=== PATIENT | female | born 1950 | race Caucasian/White ===

== ENCOUNTER 2022-04-05 15:13 | Outpatient (CLI) | payer MEDICARE, BC, SELFPAY ==
[2022-04-05 17:25] LABS: Albumin* 4.1 g/dL (3.3-5.0); Chloride* 106 mmol/L (96-114); Sodium* 137 mmol/L (135-149)
[2022-04-05 17:26] LABS: Potassium* 4.7 mmol/L (3.6-5.1)
[2022-04-05 17:28] LABS: Alanine Aminotransferase* 14 U/L (4-35); Alkaline Phosphatase* 55 U/L (40-150); Aspartate Amino Transferase* 25 U/L (12-35); Bilirubin Total* 0.2 mg/dL (0.1-1.5); Blood Urea Nitrogen* 17 mg/dL (7-30); Carbon Dioxide* 26 mmol/L (20-32); Creatinine* 0.7 mg/dL (0.5-1.5); Estimated Glomerular Filt Rate 94 ml/min; Glucose* 99 mg/dL (60-115); Total Protein* 7.3 g/dL (6.0-8.3)
[2022-04-05 17:29] LABS: Calcium* 9.2 mg/dL (8.4-10.6)
== END 2022-04-05 15:14 | disposition home or self-care (01) ==
LOC: LONREF 15:14
PROVIDERS: PCP Family Medicine; Visit Provider Family Medicine
DX: Z01.818 Encounter for other preprocedural examination (principal); K50.00 Crohn's disease of small intestine without complications; E78.5 Hyperlipidemia, unspecified; D68.2 Hereditary deficiency of other clotting factors; Z79.01 Long term (current) use of anticoagulants; G40.909 Epilepsy, unspecified, not intractable, without status epilepticus
CPT/HCPCS: 80053

== ENCOUNTER 2022-04-19 10:07 | Outpatient (CLI) | payer MEDICARE, BC, SELFPAY ==
--- NOTE | 2022-04-19 11:29 | W.ANESCHARGE ---
Anesthesia Charges Start Date/Time Anesthesia Start Date: 04/19/22 Anesthesia Start Time: 10:54 Stop Date/Time Anesthesia Stop Date: 04/19/22 Anesthesia Stop Time: 11:24 Summary Emergency: No
--- NOTE | 2022-04-19 11:53 | W.ANESCHARGE ---
Anesthesia Charges Start Date/Time Anesthesia Start Date: 04/19/22 Anesthesia Start Time: 10:54 Stop Date/Time Anesthesia Stop Date: 04/19/22 Anesthesia Stop Time: 11:24 Summary Emergency: No
== END 2022-04-19 10:08 | disposition home or self-care (01) ==
LOC: OP CLINIC 10:09
PROVIDERS: PCP Family Medicine; Visit Provider Internal Medicine Gastroenterology
DX: Z12.11 Encounter for screening for malignant neoplasm of colon (principal); K50.10 Crohn's disease of large intestine without complications; K63.5 Polyp of colon; K62.89 Other specified diseases of anus and rectum; K63.89 Other specified diseases of intestine; Z86.010 Personal history of colon polyps
CPT/HCPCS: 45380; 811; 812; 88305; J2704

== ENCOUNTER 2023-05-13 14:06 | Outpatient (CLI) | payer MEDICARE, BC, SELFPAY | END 2023-05-13 14:07 | disposition home or self-care (01) | LOC: NFLDREF 05-15 07:47 | PROVIDERS: PCP Family Medicine; Referring Provider Family Medicine; Visit Provider Family Medicine | DX: D68.2 Hereditary deficiency of other clotting factors (principal); Z79.01 Long term (current) use of anticoagulants | CPT/HCPCS: 85610 ==

== ENCOUNTER 2023-06-24 11:10 | Outpatient (CLI) | payer MEDICARE, BC, SELFPAY | END 2023-06-24 11:11 | disposition home or self-care (01) | LOC: NFLDREF 06-28 11:57 | PROVIDERS: PCP Family Medicine; Referring Provider Family Medicine; Visit Provider Family Medicine | DX: D68.2 Hereditary deficiency of other clotting factors (principal); Z79.01 Long term (current) use of anticoagulants | CPT/HCPCS: 85610 ==

== ENCOUNTER 2023-07-18 11:36 | Outpatient (CLI) | payer MEDICARE, BC, SELFPAY | END 2023-07-18 11:37 | disposition home or self-care (01) | LOC: NFLDREF 07-21 05:33 | PROVIDERS: PCP Family Medicine; Referring Provider Family Medicine; Visit Provider Family Medicine | DX: D68.2 Hereditary deficiency of other clotting factors (principal) | CPT/HCPCS: 85610 ==

== ENCOUNTER 2023-11-15 11:35 | Outpatient (CLI) | payer MEDICARE, BC, SELFPAY | END 2023-11-15 11:36 | disposition home or self-care (01) | LOC: NFLDREF 11-29 10:13 | PROVIDERS: PCP Family Medicine; Referring Provider Family Medicine; Visit Provider Family Medicine | DX: Z79.01 Long term (current) use of anticoagulants (principal) | CPT/HCPCS: 85610 ==

== ENCOUNTER 2024-02-01 16:32 | Outpatient (CLI) | payer MEDICARE, BC, SELFPAY | END 2024-02-01 16:33 | disposition home or self-care (01) | LOC: NFLDREF 02-21 10:01 | PROVIDERS: PCP Family Medicine; Referring Provider Family Medicine; Visit Provider Family Medicine | DX: R35.0 Frequency of micturition (principal) | CPT/HCPCS: 87086 ==

== ENCOUNTER 2024-08-10 13:09 | Outpatient (CLI) | payer MEDICARE, BC, SELFPAY ==
--- NOTE | 2024-08-10 13:20 | CRLHL7_ITS ---
For Patients: As a result of the Century Cures Act, medical imaging exams and procedure reports are released immediately into your electronic medical record. You may view this report before your referring provider. If you have questions, please contact your health care provider. BILATERAL SCREENING MAMMOGRAM WITH COMPUTER-AIDED DETECTION AND TOMOSYNTHESIS TECHNIQUE: CC and MLO views were obtained. These mammographic images have been obtained using full-field digital technique. These mammographic images were interpreted with the benefit of computer-aided detection. Breast Tomosynthesis was used in this interpretation. COMPARISON FILM: 05/25/2021, 04/08/2020, 06/30/2017. FINDINGS: There are scattered areas of fibroglandular density. IMPRESSION: There is no radiographic evidence for malignancy. ASSESSMENT: BI-RADS Category 1: Negative RECOMMENDATION: Routine screening mammogram in 1 year. A lay language report of this examination will be provided to the patient. Michele Damon M.D. Diagnostic Radiologist [email or web address] SP/Dictated by: Michele Damon MD @ 08/15/2024 9:38:00 AM (Electronically Signed)
== END 2024-08-10 13:10 | disposition home or self-care (01) ==
LOC: MAMMO 13:10
PROVIDERS: PCP Family Medicine; Visit Provider Family Medicine
DX: Z12.31 Encounter for screening mammogram for malignant neoplasm of breast (principal)
CPT/HCPCS: 77063; 77067

== ENCOUNTER 2024-10-08 09:29 | Outpatient (CLI) | payer MEDICARE, BC, SELFPAY | END 2024-10-08 09:30 | disposition home or self-care (01) | LOC: LKVREF 09:31 | PROVIDERS: PCP Family Medicine; Visit Provider Family Medicine | DX: R30.0 Dysuria (principal) | CPT/HCPCS: 87086 ==

== ENCOUNTER 2025-01-25 15:12 | Outpatient (CLI) | payer MEDICARE, BC, SELFPAY | END 2025-01-25 15:13 | disposition home or self-care (01) | LOC: LKVREF 15:14 | PROVIDERS: PCP Family Medicine; Visit Provider Family Medicine | DX: E78.5 Hyperlipidemia, unspecified | CPT/HCPCS: 80048 ==

== ENCOUNTER 2025-07-19 13:29 | Outpatient (CLI) | payer MEDICARE, BC, SELFPAY ==
--- NOTE | 2025-07-19 13:45 | MR_ITS ---
EXAM: MRI of the LEFT SHOULDER WITHOUT CONTRAST CLINICAL HISTORY: Ongoing left shoulder pain. Evaluate for rotator cuff tear of the left shoulder. COMPARISONS: None available. TECHNICAL: MRI sequences of the left shoulder: Axials: PD, T2 Coronals: PD, STIR, T2 Sagittals: PD, T2 SEDATION: None CONTRAST: None FINDINGS: Bones: No fracture or suspicious bone marrow signal abnormality. Coracoacromial arch: Acromion: No os acromiale. Type I-II acromion. Acromioclavicular joint: Moderate to marked osteoarthritis. Coracoclavicular ligament: The coracoclavicular ligament is intact. Rotator cuff muscles/tendons: Supraspinatus: 1.4 x 1.4 cm near full-thickness bursal sided tear of the supraspinatus tendon insertion contacting the cortical insertional surface. Minimal atrophy of the supraspinatus muscle. Infraspinatus: Mild tendinopathy. No muscular atrophy. Teres minor: The teres minor tendon and muscle are intact. Subscapularis: The subscapularis tendon and muscle are intact. Labrum and glenohumeral joint: Superior/posterosuperior labral fraying. Physiologic amount of joint fluid. The cartilage is not well evaluated by this nonarthrogram study. No convincing evidence of capsular edema or thickening although evaluation is suboptimal because of lack of joint distention. Proximal biceps tendon, long head and short heads: Rupture of the proximal long head of the biceps tendon with distal tendon retraction distal to the bicipital groove. The short head is intact. Bursae: Subacromial/subdeltoid: Mild bursitis. Subcoracoid: No convincing subcoracoid bursal thickening/bursitis. IMPRESSION: 1. 1.4 x 1.4 cm near full-thickness bursal sided tear of the supraspinatus tendon insertion contacting the cortical insertional surface. Minimal atrophy of the supraspinatus muscle. 2. Rupture of the proximal long head of the biceps tendon with distal tendon retraction distal to the bicipital groove. 3. Mild infraspinatus tendinopathy. 4. Mild subacromial/subdeltoid bursitis. 5. 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 6. Superior/posterosuperior labral fraying. RCB Electronically signed on 07/22/2025 7:35:00 AM by Olvin Wilkes M.D.
== END 2025-07-19 13:30 | disposition home or self-care (01) ==
PROVIDERS: PCP Family Medicine; Visit Provider Orthopaedic Surgery Sports Medicine
DX: M25.512 Pain in left shoulder (principal); M75.102 Unspecified rotator cuff tear or rupture of left shoulder, not specified as traumatic; M75.52 Bursitis of left shoulder; M19.012 Primary osteoarthritis, left shoulder
CPT/HCPCS: 73221

== ENCOUNTER 2025-07-29 15:34 | Outpatient (CLI) | payer MEDICARE, BC, SELFPAY | END 2025-07-29 15:35 | disposition home or self-care (01) | PROVIDERS: PCP Family Medicine; Visit Provider Family Medicine | DX: R63.5 Abnormal weight gain (principal); Z68.26 Body mass index [BMI] 26.0-26.9, adult; Z86.69 Personal history of other diseases of the nervous system and sense organs | CPT/HCPCS: 80053; 84439; 84443 ==

== ENCOUNTER 2025-09-06 12:46 | Outpatient (CLI) | payer MEDICARE, BC, SELFPAY ==
--- NOTE | 2025-09-06 13:00 | CRLHL7_ITS ---
For Patients: As a result of the Century Cures Act, medical imaging exams and procedure reports are released immediately into your electronic medical record. You may view this report before your referring provider. If you have questions, please contact your health care provider. INDICATION: BILATERAL SCREENING MAMMOGRAM, ASYMPTOMATIC 74 Y/O FEMALE COMPARISON: 08/10/2024, 05/25/2021, 04/08/2020 TECHNIQUE: Digital mammogram in CC and MLO projections including computer-aided detection (CAD) and tomosynthesis. BREAST COMPOSITION: There are scattered areas of fibroglandular density. FINDINGS: No suspicious findings. ASSESSMENT: BI-RADS 1 Negative RECOMMENDATION: Annual screening mammogram. A lay language report of this examination will be provided to the patient. Dictated by: Malena Chi MD @ 09/06/2025 15:26:16 (Electronically Signed)
== END 2025-09-06 12:47 | disposition home or self-care (01) ==
LOC: MAMMO 12:47
PROVIDERS: PCP Family Medicine; Visit Provider Family Medicine
DX: Z12.31 Encounter for screening mammogram for malignant neoplasm of breast (principal)
CPT/HCPCS: 77063; 77067